=== PATIENT | male | born 1940 | race Hispanic/Latino ===

== ENCOUNTER 2019-06-03 07:12 | Observation (INO) | payer MEDICARE ==
[2019-06-01 15:17] LABS: BASOPHILS % 0.6 % (0.0-1.0); EOSINOPHILS # (AUTO) 0.3 (0.0-0.4); EOSINOPHILS % 3.9 % (0.0-6.0); HEMATOCRIT 42.1 % (38.2-49.6); LYMPHOCYTES % 28.2 % (18.0-39.1); MEAN CORPUSCULAR HEMOGLOBIN 31.7 pg (28-32); MEAN CORPUSCULAR HGB CONC 33.3 g/dL (31-35); MEAN CORPUSCULAR VOLUME 95.5 fL (81-99); MONOCYTES # (AUTO) 0.6 (0.2-0.8); MONOCYTES % 8.7 % (4.4-11.3); NEUTROPHILS # (AUTO) 4.1 (2.1-6.9); NEUTROPHILS % 58.3 % (38.7-80.0); PLATELET COUNT 184 x10e3/uL (140-360); RED BLOOD COUNT 4.41 x10e6/uL (4.3-5.7)
--- NOTE | 2019-06-01 15:33 | Diagnostic Imaging Report ---
EXAMINATION: CHEST 2 VIEWS INDICATION: Pre-operative COMPARISON: None FINDINGS: LINES/TUBES:None LUNGS:The lungs are moderately inflated. No focal consolidation or pulmonary edema. PLEURA:No pleural effusion or pneumothorax. MEDIASTINUM:The cardiomediastinal silhouette appears normal in size and shape. Mild atherosclerotic calcifications of the thoracic aorta. BONES/SOFT TISSUES:No acute osseous injury. Degenerative changes of the thoracic spine. ABDOMEN:No free air under the diaphragm. IMPRESSION: No focal pneumonia or pulmonary edema. Signed by: Aaron Messer MD on 06/01/2019 3:30 PM
[~2019-06-03] VITALS: Ht 172.7 cm; Wt 83.9 kg
[~2019-06-03 07:12] MED LIST: FINASTERIDE5 MG PO; FLOMAX0.4 MG PO; MACROBID 100 M100 MG PO; PLAVIX75 MG PO; RAMIPRIL5 MG PO; SIMVASTATIN20 MG PO
--- OUTSIDE RECORDS SUMMARY | 2019-06-03 07:14 | XMS REPORT ---
Author Author [facility] Organization [facility] Address Unknown Phone Unavailable Care Team Providers Care Mobile Ui/Ux Designer Name Role Phone Jeremy RODAS Unavailable Unavailable Payers Payer Name Policy Type Policy Number Effective Date Expiration Date Problems This patient has no known problems. Allergies, Adverse Reactions, Alerts Allergy Name Allergy Type Status Severity Reaction(s) Onset Date Inactive Date Treating Clinician Comments No Known Allergies DA Active U 2019-04-06 00:00:00 No Known Intolerances DA Active U 2009-09-22 00:00:00 Medications This patient has no known medications. Results Test Description Test Time Test Comments Text Results Atomic Results Result Comments CHEST 2 VIEWS 2019-06-01 15:29:00 [place] [address] Patient Name: JHOAN MARIA MR #: [id number] : 1940 Age/Sex: 79/M Req #: [id number] Adm Physician: Ordered by: HARPREET RODAS MD Report #: [id number] Location: OR Room/Bed: Procedure: [id number] DX/CHEST 2 VIEWS Exam Date: 06/01/19 Exam Time: 1510 REPORT STATUS: Signed EXAMINATION: CHEST 2 VIEWS INDICATION: Pre-operative COMPARISON: None FINDINGS: LINES/TUBES:None LUNGS:The lungs are moderately inflated. No focal consolidation or pulmonary edema. PLEURA:No pleural effusion or pneumothorax. MEDIASTINUM:The cardiomediastinal silhouette appears normal in size and shape. Mild atherosclerotic calcifications of the thoracic aorta. BONES/SOFT TISSUES:No acute osseous injury. Degenerative changes of the thoracic spine. ABDOMEN:No free air under the diaphragm. IMPRESSION: No focal pneumonia or pulmonary edema. Signed by: Mary Irvin MD on 06/01/2019 3:30 PM Dictated By: MARY IRVIN MD 29 Transcribed By: YOUSUF on 06/01/191529 COPY TO: HARPREET RODAS MD COMPREHENSIVE METABOLIC PANEL 2019-04-07 06:56:00 SODIUM (test code=NA) 138 mmol/L 136-145 POTASSIUM (test code=K) 3.8 mmol/L 3.5-5.1 CHLORIDE (test code=CL) 108 mmol/L 98-107 CARBON DIOXIDE (test code=CO2) 26 mmol/L 21-32 GLUCOSE (test code=GLU) 97 mg/dL 70-100 BLOOD UREA NITROGEN (test code=BUN) 8 mg/dL 7-18 GLOMERULAR FILTRATION RATE (test code=GFR) > 60.00 >=60 Reporting units: mL/min/1.73m\S\2 (Modified MDRD formula)REFERENCE RANGE: > or=60 ml/min/1.73M2IF PATIENT IS -GHANAIAN, MULTIPLY REPORTED RESULT BY1.21. CREATININE (test code=CREAT) 0.80 mg/dL 0.67-1.17 TOTAL PROTEIN (test code=PROT) 6.1 g/dl 6.4-8.2 ALBUMIN (test code=ALB) 2.8 g/dl 3.4-5.0 CALCIUM (test code=CA) 7.7 mg/dL 8.5-10.1 BILIRUBIN TOTAL (test code=BILT) 0.9 mg/dl 0.2-1.0 SGOT/AST (test code=AST) 17 U/L 15-37 SGPT/ALT (test code=ALT) 20 U/L 12-78 ALKALINE PHOSPHATASE TOTAL (test code=ALKP) 65 U/L 50-136 [id number] 06:56:00* Test Item Value Reference Range Comments PHOSPHOROUS (test code=PHOS) 2.9 mg/dL 2.5-4.9 [id number] 06:56:00* Test Item Value Reference Range Comments MAGNESIUM (test code=MAG) 2.1 mg/dL 1.8-2.4 PROTHROMBIN [id number] 06:52:00* Test Item Value Reference Range Comments PROTHROMBIN TIME PATIENT (test code=PTP) 10.8 SECONDS 8.7-12.1 THERAPEUTIC LEVEL: 1.5 TO 1.9 TIMES NORMAL RANGE INTERNATIONAL NORMAL RATIO (test code=INR) 1.0 Recommended Therapeutic PT Ratios For Oral AnticoagulantTherapy. CONDITION INT'L NORMALIZED PT RATIO Prophylaxis of venous thrombosis 2.0 - 3.0in high risk medical or surgicalpatients, treatment of venousthrombosis, prevention of embolism. Prevention of recurrent embolism, 2.5 - 3.5or treatment of patients with mechanicalprosthetic heart valves. B-TYPE NATRIURETIC [id number] 06:47:00* Test Item Value Reference Range Comments B-TYPE NATRIURETIC PEPTIDE (test code=BNP) 152.5 PG/ML 0-100 CBC W/AUTO [id number] 06:10:00* Test Item Value Reference Range Comments WHITE BLOOD CELL (test code=WBC) 11.6 X10(3) 4.5-11.0 RED BLOOD CELL (test code=RBC) 3.73 X10(6) 4.3-5.9 HEMOGLOBIN (test code=HGB) 11.5 g/dL 13.5-18.0 HEMATOCRIT (test code=HCT) 35.2 % 42.0-52.0 MEAN CELL VOLUME (test code=MCV) 94.4 fl 78-100 MEAN CELL HGB (test code=MCH) 30.8 pg 26.0-34.0 MEAN CELL HGB CONCETRATION (test code=MCHC) 32.7 g/dl 30.0-37.0 RED CELL DISTRIBUTION WIDTH (test code=RDW) 14.0 % 11.5-14.5 PLATELET COUNT (test code=PLT) 172 X10(3) 150-350 MEAN PLATELET VOLUME (test code=MPV) 11.1 fl 8.7-11.4 NEUTROPHIL % (test code=NT%) 80.9 % 36.0-66.0 IMMATURE GRANULOCYTE % (test code=IG%) 0.4 % 0.0-2.0 LYMPHOCYTE % (test code=LY%) 12.4 % 16-50 MONOCYTE % (test code=MO%) 6.1 % 0.0-13.0 EOSINOPHIL % (test code=EO%) 0.0 % 0.0-4.5 BASOPHIL % (test code=BA%) 0.2 % 0.0-1.5 NUCLEATED RBC % (test code=NRBC%) 0.0 % 0-0.2 NEUTROPHIL # (test code=NT#) 9.4 X10(3) 1.7-7.7 IMMATURE GRANULOCYTE # (test code=IG#) 0.05 X10(3)uL 0.00-0.03 LYMPHOCYTE # (test code=LY#) 1.4 X10(3) 0.7-4.0 MONOCYTE # (test code=MO#) 0.7 X10(3) 0.0-0.89 EOSINOPHIL # (test code=EO#) 0.0 X10(3) 0.0-0.6 BASOPHIL # (test code=BA#) 0.0 X10(3) 0.0-0.2 NUCLEATED RBC # (test code=NRBC#) 0.00 K/mm3 0.0-0.1 BASIC METABOLIC [id number] 06:50:00* Test Item Value Reference Range Comments SODIUM (test code=NA) 140 mmol/L 136-145 POTASSIUM (test code=K) 3.5 mmol/L 3.5-5.1 CHLORIDE (test code=CL) 110 mmol/L 98-107 CARBON DIOXIDE (test code=CO2) 26 mmol/L 21-32 GLUCOSE (test code=GLU) 131 mg/dL 70-100 BLOOD UREA NITROGEN (test code=BUN) 10 mg/dL 7-18 GLOMERULAR FILTRATION RATE (test code=GFR) > 60.00 >=60 Reporting units: mL/min/1.73m\S\2 (Modified MDRD formula)REFERENCE RANGE: > or=60 ml/min/1.73M2IF PATIENT IS -GHANAIAN, MULTIPLY REPORTED RESULT BY1.21. CREATININE (test code=CREAT) 0.80 mg/dL 0.67-1.17 CALCIUM (test code=CA) 8.6 mg/dL 8.5-10.1 BASIC METABOLIC [id number] 06:49:00* Test Item Value Reference Range Comments SODIUM (test code=NA) 140 mmol/L 136-145 POTASSIUM (test code=K) 3.5 mmol/L 3.5-5.1 CHLORIDE (test code=CL) 110 mmol/L 98-107 CARBON DIOXIDE (test code=CO2) 26 mmol/L 21-32 GLUCOSE (test code=GLU) 131 mg/dL 70-100 BLOOD UREA NITROGEN (test code=BUN) 10 mg/dL 7-18 GLOMERULAR FILTRATION RATE (test code=GFR) >=60 CREATININE (test code=CREAT) mg/dL 0.67-1.17 CALCIUM (test code=CA) 8.6 mg/dL 8.5-10.1 CBC W/AUTO [id number] 06:37:00* Test Item Value Reference Range Comments WHITE BLOOD CELL (test code=WBC) 8.5 X10(3) 4.5-11.0 RED BLOOD CELL (test code=RBC) 4.05 X10(6) 4.3-5.9 HEMOGLOBIN (test code=HGB) 12.4 g/dL 13.5-18.0 HEMATOCRIT (test code=HCT) 38.7 % 42.0-52.0 MEAN CELL VOLUME (test code=MCV) 95.6 fl 78-100 MEAN CELL HGB (test code=MCH) 30.6 pg 26.0-34.0 MEAN CELL HGB CONCETRATION (test code=MCHC) 32.0 g/dl 30.0-37.0 RED CELL DISTRIBUTION WIDTH (test code=RDW) 13.9 % 11.5-14.5 PLATELET COUNT (test code=PLT) 179 X10(3) 150-350 MEAN PLATELET VOLUME (test code=MPV) 10.2 fl 8.7-11.4 NEUTROPHIL % (test code=NT%) 67.8 % 36.0-66.0 IMMATURE GRANULOCYTE % (test code=IG%) 0.5 % 0.0-2.0 LYMPHOCYTE % (test code=LY%) 20.0 % 16-50 MONOCYTE % (test code=MO%) 8.0 % 0.0-13.0 EOSINOPHIL % (test code=EO%) 3.2 % 0.0-4.5 BASOPHIL % (test code=BA%) 0.5 % 0.0-1.5 NUCLEATED RBC % (test code=NRBC%) 0.0 % 0-0.2 NEUTROPHIL # (test code=NT#) 5.8 X10(3) 1.7-7.7 IMMATURE GRANULOCYTE # (test code=IG#) 0.04 X10(3)uL 0.00-0.03 LYMPHOCYTE # (test code=LY#) 1.7 X10(3) 0.7-4.0 MONOCYTE # (test code=MO#) 0.7 X10(3) 0.0-0.89 EOSINOPHIL # (test code=EO#) 0.3 X10(3) 0.0-0.6 BASOPHIL # (test code=BA#) 0.0 X10(3) 0.0-0.2 NUCLEATED RBC # (test code=NRBC#) 0.00 K/mm3 0.0-0.1 - CT ABD PELVIS [id number] 20:24:00 Name: JHOAN MARIA [facility] : 1940 Age/S: 79 / M [address] [facility] Unit #: [id number] Loc: [place] [address] Phys: Jay Carrizales II, MD Acct: [id number] Dis Date: Status: REG ER PHONE #: [phone] Exam Date: 04/05/20191953 FAX #: [phone] Reason: gross hematuria EXAMS: CPT CODE: [id number] CT ABD PELVIS W/CONT 16077 LOCATION: V20 EXAM: - CT ABD PELVIS W/CONT HISTORY: gross hematuria TECHNIQUE: Axial imaging of the abdomen and pelvis from the lung base to the pubic symphysis following administration of 100 mL Isovue-300 intravenous contrast. Sagittal and coronal reconstructions. CT scan performed using appropriate/available dose optimization/reduction techniques. DLP 543.73 mGy*cm COMPARISON: None. FINDINGS: Lung base:Mild bibasilar atelectasis. The heart size is normal. No pericardial or pleural effusion. Liver/spleen: 1.5 x 1.5 cm hepatic dome cyst. Otherwise unremarkable. Biliary system: The gallbladder is unremarkable. No biliary duct dilatation. Pancreas: Unremarkable. Adrenal glands: Normal. Kidneys: No radiopaque nephrolithiasis. There are several cystic structures in the left renal hilus, without dilatation of the renal pelvis which are favored to represent parapelvic cysts. No perinephric fluid. No cortical les ions. Symmetric contrast enhancement. Vascular: Moderate at herosclerosis normal caliber abdominal aorta. Normal portal venous opacifi cation. Lymph nodes: No abdominal lymphadenopathy. P elvic structures: The prostate gland is significantly enlarged, measuring 6.5 TR x 6.0 AP x 6.0 SI cm and indents prominently on the urinary bladder base. The urinary bladder is underdistended which limits its assessment. There is a lobulated high density material within the urinary bladder me asuring approximately 5.5 TR x 2.0 AP x PAGE 1 Signed Report (CONTINUED) Name: JHOAN MARIA [facility] : 1940 Age/S: 79 / M [address] Unit #: [id number] Loc: [place] [address] Phys: Jay Carrizales II, MD Acct: [id number] Dis Date: Status: REG ER PHONE #: [phone] Exam Date: 04/05/20191953 FAX #: [phone] Reason: gross hematuria EXAMS: CPT CODE: [id number] CT ABD PELVIS W/CONT 28541 <Continued> 2.0 SI cm. This may represent luminal debris, mass, or hemorrhage. A 1.0 x 1.0 cm soft tissue density is present along the right lateral abdominal wall, axial image 73. This may represent a small lymph node or other soft tissue lesion. Smaller lymph nodes are noted in the anterior pelvis, measuring up to 6 mm in short axis. Gastrointestinal tract: No abnormal bowel dilatation. Normal caliber appendix is identified. No focal fluid collections, ascites or evidence of pneumoperitoneum. Bones and soft tissues: No focal aggressive osseous lesions. A fat-containing left inguinal hernia is present. IMPRESSION: 1. Significant enlargement of the prostate gland, which indents prominently on the urinary bladder base. 2. Lobulated high density within the urinary bladder which may represent luminal debris, mass or hemorrhage. 3. A contiguous soft tissue density is present along the right lateral urinary bladder wall which may represent a lymph node or other soft tissue lesion. Nonpathologically enlarged lymph nodes are noted within the anterior pelvic fat. This constellation of findings is worrisome for neoplasm. Further assessment of the urinary bladder and prostate is recommended. at 2023 Reported and signed by: SHYANNE AARON MD. CC: Jay Carrizales Technologist:Ezequiel Monge, RT (R) CT (R) CTDI: 10.18 DLP: 543.73 Trnscb Date/Time: 04/05/2019 (2023) [id number] Orig Print D/T: S: 04/05/2019 (2026) PAGE 2 Signed Report CBC W/AUTO [id number] 19:33:00* Test Item Value Reference Range Comments WHITE BLOOD CELL (test code=WBC) 6.0 X10(3) 4.5-11.0 RED BLOOD CELL (test code=RBC) 4.14 X10(6) 4.3-5.9 HEMOGLOBIN (test code=HGB) 13.0 g/dL 13.5-18.0 HEMATOCRIT (test code=HCT) 38.6 % 42.0-52.0 MEAN CELL VOLUME (test code=MCV) 93.2 fl 78-100 MEAN CELL HGB (test code=MCH) 31.4 pg 26.0-34.0 MEAN CELL HGB CONCETRATION (test code=MCHC) 33.7 g/dl 30.0-37.0 RED CELL DISTRIBUTION WIDTH (test code=RDW) 13.7 % 11.5-14.5 PLATELET COUNT (test code=PLT) 188 X10(3) 150-350 MEAN PLATELET VOLUME (test code=MPV) 10.9 fl 8.7-11.4 NEUTROPHIL % (test code=NT%) 53.2 % 36.0-66.0 IMMATURE GRANULOCYTE % (test code=IG%) 0.3 % 0.0-2.0 LYMPHOCYTE % (test code=LY%) 31.7 % 16-50 MONOCYTE % (test code=MO%) 8.8 % 0.0-13.0 EOSINOPHIL % (test code=EO%) 5.2 % 0.0-4.5 BASOPHIL % (test code=BA%) 0.8 % 0.0-1.5 NUCLEATED RBC % (test code=NRBC%) 0.0 % 0-0.2 NEUTROPHIL # (test code=NT#) 3.2 X10(3) 1.7-7.7 IMMATURE GRANULOCYTE # (test code=IG#) 0.02 X10(3)uL 0.00-0.03 LYMPHOCYTE # (test code=LY#) 1.9 X10(3) 0.7-4.0 MONOCYTE # (test code=MO#) 0.5 X10(3) 0.0-0.89 EOSINOPHIL # (test code=EO#) 0.3 X10(3) 0.0-0.6 BASOPHIL # (test code=BA#) 0.1 X10(3) 0.0-0.2 NUCLEATED RBC # (test code=NRBC#) 0.00 K/mm3 0.0-0.1 URINALYSIS W REFLEX [id number] 19:00:00* Test Item Value Reference Range Comments UA COLOR (test code=COLU) Red YELLOW UA APPEARANCE (test code=APPU) TURBID CLEAR UA GLUCOSE DIPSTICK (test code=DGLUU) 50 mg/dl NORMAL UA BILIRUBIN DIPSTICK (test code=BILU) NEGATIVE mg/dl NEGATIVE UA KETONE DIPSTICK (test code=KETU) 20 mg/dl NEGATIVE UA SPECIFIC GRAVITY (test code=SGU) 1.021 1.001-1.035 UA BLOOD DIPSTICK (test code=BENNY) MODERATE /UL NEGATIVE UA PH DIPSTICK (test code=KAMLESH) 6.0 4.6-8.0 UA PROTEIN DIPSTICK (test code=PROU) 100 mg/dl NEGATIVE UA UROBILINIOGEN DIPSTICK (test code=URO) NORMAL mg/dl NORMAL UA NITRITE DIPSTICK (test code=BALTAZAR) NEGATIVE NEGATIVE UA LEUKOCYTE ESTERASE DIPSTICK (test code=LEUU) NEGATIVE /UL NEGATIVE UA COMMENT (test code=COMU) CLN CATCH UA WBC (test code=WBCU) 0-2 #/hpf 0-5 UA RBC (test code=RBCU) >100 #/hpf 0-5 UA BACTERIA (test code=BACU) 1+ /hpf NEGATIVE DELAY DUE TO GROSSLY BLOODY SPECIMENBASIC METABOLIC [id number] 18:57:00* Test Item Value Reference Range Comments SODIUM (test code=NA) 140 mmol/L 136-145 POTASSIUM (test code=K) 3.4 mmol/L 3.5-5.1 CHLORIDE (test code=CL) 111 mmol/L 98-107 CARBON DIOXIDE (test code=CO2) 27 mmol/L 21-32 GLUCOSE (test code=GLU) 125 mg/dL 70-100 BLOOD UREA NITROGEN (test code=BUN) 11 mg/dL 7-18 GLOMERULAR FILTRATION RATE (test code=GFR) > 60.00 >=60 Reporting units: mL/min/1.73m\S\2 (Modified MDRD formula)REFERENCE RANGE: > or=60 ml/min/1.73M2IF PATIENT IS -GHANAIAN, MULTIPLY REPORTED RESULT BY1.21. CREATININE (test code=CREAT) 0.90 mg/dL 0.67-1.17 CALCIUM (test code=CA) 8.7 mg/dL 8.5-10.1 COMPREHENSIVE METABOLIC [id number] 18:57:00* Test Item Value Reference Range Comments TOTAL PROTEIN (test code=PROT) 7.1 g/dl 6.4-8.2 ALBUMIN (test code=ALB) 3.3 g/dl 3.4-5.0 BILIRUBIN TOTAL (test code=BILT) 0.4 mg/dl 0.2-1.0 SGOT/AST (test code=AST) 22 U/L 15-37 SGPT/ALT (test code=ALT) 27 U/L 12-78 ALKALINE PHOSPHATASE TOTAL (test code=ALKP) 76 U/L 50-136 PROTHROMBIN [id number] 18:49:00* Test Item Value Reference Range Comments PROTHROMBIN TIME PATIENT (test code=PTP) 10.9 SECONDS 8.7-12.1 THERAPEUTIC LEVEL: 1.5 TO 1.9 TIMES NORMAL RANGE INTERNATIONAL NORMAL RATIO (test code=INR) 1.0 Recommended Therapeutic PT Ratios For Oral AnticoagulantTherapy. CONDITION INT'L NORMALIZED PT RATIO Prophylaxis of venous thrombosis 2.0 - 3.0in high risk medical or surgicalpatients, treatment of venousthrombosis, prevention of embolism. Prevention of recurrent embolism, 2.5 - 3.5or treatment of patients with mechanicalprosthetic heart valves.
[2019-06-03] MEDS ORDERED: CEFTRIAXONE SOD 1 GM/NS 50 ML 50 ML IV ONE (09:11)
[2019-06-03] MEDS ORDERED: IOPAMIDOL 610MG/1ML 300 MG/ML VIAL IV ONE (10:25)
[2019-06-03] MEDS ORDERED: FENTANYL CITRATE/PF 100MCG/2 ML INJ ONE ×2 (12:21→18:58)
--- NOTE | 2019-06-03 13:36 | NUR ---
received report from sepideh from pacu awaiting for pt to arrive to floor
[2019-06-03 14:10] VITALS: BP 162/79
--- NOTE | 2019-06-03 14:10 | NUR ---
PT RESTING IN BED AA0X3 FAMILY IS AT BEDSIDE PT C/O OF PAIN 101/10 TO BLADDER (PRN TYLENOL #3 WILL BE GIVEN) WATERMAN WITH CBI AT FAST RATE. WATERMAN BAG CONTAINS BLOODY BRIGHT RED URINE WITH EVIDENT CLOTS PT PLACE ON SED AND STOCKING FOR DVT PROPHYLAXIS WILL CONTINUE TO MONITOR PT CLOSELY, SIDE RAILSX2, BED WHEELS LOCKED CALL LIGHT IS WITHIN EASY REACH INSTRUCTED TO CALL FOR ASSISTANCE IF NEEDED
[2019-06-03] MEDS ORDERED: ACETAMINOPHEN/CODEINE 300MG - 30MG TAB PO PRN ×2 (14:15→14:45)
[2019-06-03] MEDS: ACETAMINOPHEN/CODEINE 300MG - 30MG TAB PO PRN (14:22)
[2019-06-03 14:23] VITALS: BP 162/79
[2019-06-03] MEDS: TRIMETHOPRIM/SULFAMETHOXAZOLE 160-800 MG TAB PO SCH ×2 (14:30→21:32)
[2019-06-03] MEDS: DEXTROSE 5%/0.45% SOD CHL 1,000 ML IV SCH ×2 (15:21→23:59)
[2019-06-03 16:20] VITALS: BP 133/71
[2019-06-03] MEDS ORDERED: TRIMETHOPRIM/SULFAMETHOXAZOLE 160-800 MG TAB PO SCH (17:00)
--- NOTE | 2019-06-03 17:11 | NUR ---
SPOKE TO MD RODAS REGARDING PT UNRELIEVED PT WITH TYLENOL #3 . ONE TIME ORDER FOR MORPHINE 3MG IV DOSE GIVEN
[2019-06-03] MEDS ORDERED: MORPHINE SULFATE INJ 4 MG/ML INJ 1ML IV ONE (17:15)
[2019-06-03] MEDS ORDERED: DEXAMETHASONE SOD PHOS INJ 4 MG/ML VIAL ONE (17:48)
[2019-06-03] MEDS ORDERED: SEVOFLURANE INHAL SOLN 250 ML PEN BTL ONE (17:48)
[2019-06-03] MEDS ORDERED: LIDOCAINE HCL 2% LOCAL INJ 5 ML SDV VIAL INJ ONE (17:48)
[2019-06-03] MEDS ORDERED: EPHEDRINE SULFATE INJ 50 MG/10 ML SYR ONE (17:48)
[2019-06-03] MEDS ORDERED: PROPOFOL IV EMULSION 10 MG/ML 20 ML VIAL ONE (17:48)
[2019-06-03] MEDS ORDERED: ONDANSETRON HCL INJ 2MG/ML 2ML 2 MG/ML VIAL ONE (17:48)
--- NOTE | 2019-06-03 19:29 | NUR ---
Patient requesting pain medication and tylenol not available. Paged Dr. Ding for orders.
[2019-06-03 20:00] VITALS: BP 134/63
[2019-06-03] MEDS ORDERED: ONDANSETRON HCL INJ 2MG/ML 2ML 2 MG/ML VIAL IV PRN (20:15)
--- NOTE | 2019-06-03 20:19 | NUR ---
Spoke with Aga Odell for zofran, irrigated cath to check flow to ensure no clots.
[2019-06-03] MEDS ORDERED: FINASTERIDE 5 MG TAB PO SCH (21:00)
[2019-06-03] MEDS ORDERED: SIMVASTATIN 20 MG TAB PO SCH (21:00)
[2019-06-03 22:10] VITALS: BP 134/63
[2019-06-04] VITALS: BP 144/69
--- NOTE | 2019-06-04 03:43 | NUR ---
Dr. Ding here for rounding. d/c CBI with tip intact. Patient denies pain at this time. Instructed to void x2 >100cc each episodes. Patient and verbalized understanding.
[2019-06-04 04:00] VITALS: BP 134/72
[2019-06-04] MEDS: ACETAMINOPHEN/CODEINE 300MG - 30MG TAB PO PRN ×3 (06:17→17:23)
--- NOTE | 2019-06-04 08:03 | NUR ---
Received patient this morning and a/ox3, rounds completed and no resp distress, call light within reach, bed in low locked position, will monitor.
[2019-06-04] MEDS ORDERED: RAMIPRIL 5 MG CAP PO SCH (09:00)
[2019-06-04] MEDS ORDERED: CLOPIDOGREL BISULFATE 75 MG TAB PO SCH (09:00)
[2019-06-04] MEDS ORDERED: TAMSULOSIN HCL 0.4 MG CAP PO SCH (09:00)
[2019-06-04] MEDS: TRIMETHOPRIM/SULFAMETHOXAZOLE 160-800 MG TAB PO SCH (09:05)
[2019-06-04 10:36] VITALS: BP 141/71
[2019-06-04 10:43] VITALS: BP 141/71
[2019-06-04] MEDS: DEXTROSE 5%/0.45% SOD CHL 1,000 ML IV SCH (11:40)
[2019-06-04 12:07] VITALS: BP 131/60
--- NOTE | 2019-06-04 14:39 | NUR ---
Call to Dr. Bahena's office for patient c/o pains to lower S/P area. Will bladder scan and if urine <200, patient can go home.
[2019-06-04] MEDS ORDERED: TYLENOL # 31 EA PO (15:44)
[2019-06-04 16:04] VITALS: BP 144/76
--- NOTE | 2019-06-04 17:02 | NUR ---
Patient voided the 3rd time, still some hematuria, voided about 200cc, still c/o some pain S/P region, will medicated with APAP #3 prior to departure, IV line removed and cath tip in place, dressing applied. Provided patient with discharge prescriptions and discharge documentation.
--- NOTE | 2019-06-29 10:48 | Operative Report ---
DATE OF PROCEDURE: 06/03/2019 SURGEON: Reinier Ding MD PREOPERATIVE DIAGNOSIS: Bladder outlet obstruction. POSTOPERATIVE DIAGNOSIS: Bladder outlet obstruction. OPERATIVE PROCEDURE PERFORMED: Cystoscopy and transurethral resection of prostate. ANESTHESIA: General anesthesia. ESTIMATED BLOOD LOSS: 100 mL. INDICATIONS: Mr. Mat Schuler is a 79-year-old with a history of worsening bladder outlet obstructive type symptoms despite maximal medical therapy. He now presents for definitive surgical management of this problem. PROCEDURE IN DETAIL: The patient was brought into the operative room, placed in supine position. After initiation of general anesthesia, was placed in dorsal lithotomy position and prepped and draped in the usual sterile fashion. Cystourethroscopy was performed using 22-Ethiopian cystoscope. The anterior and posterior urethra were noted to be normal. The prostate revealed trilobar hyperplasia with moderate elevation of the median bar. The bladder was entered without difficulty. Upon entrance into the bladder, the ureteral orifices were normal anatomical position and produce clear efflux. There were grade 2 trabeculations noted throughout with early signs. There were no mucosal lesions identified. There was clear efflux seen coming from both ureteral orifices, which were in normal anatomical position. The bladder was left full and the cystoscope and sheath were removed. A 26-Ethiopian resectoscope sheath was then placed in a retrograde fashion and the [id number] resectoscope was used to perform the procedure. Beginning at the 1 o'clock position and proceeding in a clockwise fashion down to the 6 o'clock position, all the adenomatous tissue between the bladder neck and the veru were resected down to the level of the surgical capsule. There was no gross penetration or perforation of the capsule appreciated. Hemostasis was obtained using electrocautery device. A similar procedure was performed on the contralateral side in a counter-clockwise fashion beginning at the 11 o'clock position and again ending at 6 o'clock position. Again, there was no gross penetration of the capsule during the procedure. Again, hemostasis was obtained using electrocautery device. The residual tissue on the roof of the gland was resected free, and the NuORDER evacuator was used to remove all chips. These were sent to pathology for microscopic analysis. Once adequate hemostasis was secured, the cystoscope and sheath were removed. The patient was noted to have a good urinary flow with coude. A 24-Ethiopian three-way coude catheter was placed in a retrograde fashion and the balloon was inflated with 45 mL of sterile water. The patient was started on continuous bladder irrigation and his urinary efflux was noted to be blood tinged. He was returned to supine position and anesthesia was reversed. He was transferred to a bed and taken to the postanesthesia care unit in good condition. Of note, the needle and instrument count were correct at the conclusion of the case. MD TIFFANI Castanon/WILLIAM /[id number]
== END 2019-06-04 18:11 | disposition home or self-care (01) ==
LOC: OR 07:12 → PACU V 12:23 → MED/SURG 13:58
PROVIDERS: ADMIT Urology; ATTEND Urology
DX: N40.1 Benign prostatic hyperplasia with lower urinary tract symptoms (principal); N13.8 Other obstructive and reflux uropathy; Z01.810 Encounter for preprocedural cardiovascular examination; Z01.812 Encounter for preprocedural laboratory examination; Z01.811 Encounter for preprocedural respiratory examination; R33.8 Other retention of urine
CPT/HCPCS: 36415; 52601; 71046; 85025; 88305; 93005; C1758; G0378 ×2; J0696; J1100; J2001; J2270; J2405; J2704; J3010